=== PATIENT | male | born 1945 | race Caucasian/White ===

== ENCOUNTER 2024-05-11 07:08 | Observation (INO) ==
[2024-05-11] MEDS ORDERED: Lidocaine 2% PF 5 ML VIAL ONE (08:22)
[2024-05-11] MEDS ORDERED: fentaNYL 100 mcg/2 ml 50 MCG/ML VIAL ONE (08:22)
[2024-05-11] MEDS ORDERED: Ondansetron 4 mg VIAL 2 MG/ML 2 ml VIAL ONE (08:22)
[2024-05-11] MEDS ORDERED: Propofol 10 MG/ML 20 ML BTL ONE (08:22)
[2024-05-11] MEDS ORDERED: Dexamethasone IV 4 MG/ML VIAL 1 ml VIAL ONE (08:22)
[2024-05-11] MEDS ORDERED: Metoclopramide 5 MG/ML VIAL (10 mg) IV PRN (08:56)
[2024-05-11] MEDS ORDERED: fentaNYL 100 mcg/2 ml 50 MCG/ML VIAL IV PRN (08:56)
[2024-05-11] MEDS ORDERED: Ondansetron 4 mg VIAL 2 MG/ML 2 ml VIAL IV PRN ×2 (08:56→09:28)
[2024-05-11] MEDS ORDERED: Naloxone 0.4 mg VIAL 0.4 mg/ml 1 ml VIAL IV PRN (08:56)
[2024-05-11 10:38] LABS: Rapid COVID-19 Molecular Undetected (Undetected)
[2024-05-11] MEDS: Gentamicin ADULT 400 MG in NS 0.9% 100 ml BAG 100 ML IVPB ONE (11:46)
[2024-05-11] MEDS: Ampicillin ADVAN 2 GM in NS 0.9% 100 ML 100 ML IVPB ONE (11:46)
[2024-05-11] MEDS: Lactated Ringers 1000 ml BAG 1,000 ML IV SCH (11:47)
[2024-05-11] MEDS: Buffered Lidocaine 1% SYRIN 1 ml INTRADERM ONE (11:49)
[2024-05-11] MEDS ORDERED: Phenylephrine 40 mcg/mL 10mL (400mcg) SYRINGE ONE (12:23)
[2024-05-11] MEDS ORDERED: Furosemide 20 mg/2 ml IV VIAL ONE (12:23)
[2024-05-11] MEDS: NS 0.9% 1000 ml BAG 1,000 ML IV SCH (13:01)
[2024-05-11] MEDS: Acetaminophen IV 1 GM/100ML 1,000 MG/100 ML BAG IV ONE (13:03)
[2024-05-11] MEDS: Neomycin/Polym/Bacit TOP OINT 15 GM TOPICAL SCH (13:04)
[2024-05-11] MEDS: Magnesium Hydroxide LIQ 30 ML UDC PO SCH (21:06)
[2024-05-12 09:44] VITALS: BP 129/68
== END 2024-05-12 11:13 | disposition home or self-care (01) ==
LOC: OR 07:08 → SSU 07:08
PROVIDERS: ADMIT Urology; ATTEND Urology